=== PATIENT | female | born 1980 | race Caucasian/White ===

== ENCOUNTER → 2024-09-11 | Outpatient (CLI) | payer MEDICAID, SELFPAY ==
[2024-09-11 11:24] LABS: HCG Qualitative,Urine Negative
== END | disposition home or self-care (01) ==
LOC: SLAB 09-14 07:29
PROVIDERS: PCP Family Medicine; Referring Provider Internal Medicine; Visit Provider Internal Medicine
DX: Z32.00 Encounter for pregnancy test, result unknown (principal)
CPT/HCPCS: 81025

== ENCOUNTER 2024-10-29 07:33 | Emergency (ER) | payer MEDICAID, SELFPAY ==
[2024-10-29 07:34] VITALS: BMI 49.1
[2024-10-29 07:44] VITALS: BP 109/69; PULSE 101; RESP 20; TEMP 37; O2SAT 95
--- NOTE | 2024-10-29 07:59 | PC.NURSE ---
Patient declined Covid and Influenza swab test, declined X-ray, medication and breathing treatment. Patient only wants Inhaler for at home use.MD Villeda notified.
--- NOTE | 2024-10-29 08:05 | PC.NURSE ---
PT REFUSED TO HAVE XRAY DONE, JAN/FLU SWAB DONE, AND REFUSED SOLUMEDROL SHOT. DR. CENTENO AWARE
--- NOTE | 2024-10-29 09:09 | EDNOTE_ITS ---
Upper Respiratory Inf. RME/HPI General Chief Complaint: Flu Like Symptoms Stated Complaint: COUGH FOR 5 DAYS Time Seen by Provider: 10/29/24 07:36 Source: patient Arrival date/time: 10/29/24 07:33 Mode of arrival: ambulatory Limitations: no limitations RME / HPI RME / HPI Narrative: Patient is a 43-year-old female with medical history notable for smoking that emerged primary concerns for difficulty catching her breath after smoking out as well as a cough. Patient states that he has had a cough the last couple days yesterday after she smoked she had a hard time catching her breath and so she came to the emergency department for evaluation. Denies fevers chills nausea vomiting chest pain abdominal pain dysuria hematuria melena bloody stools. No drugs or alcohol. No recent travel no sick contacts Related Data Previous Rx's ?Medication ?Instructions ?Recorded albuterol sulfate 90 mcg/actuation 2 puff inhalation Q ID PRN 10/29/24 aerosol inhaler shortness of breath or wheez ing #8.5 grams Allergies Allergy/AdvReac Type Severity Reaction Status Date / Time No Known Allergies Allergy Verified 10/29/24 07:36 ED Exam General Limitations: Present no limitations General appearance: Present alert and in no apparent distress Head Head exam: Present atraumatic Eye Eye exam: Present normal appearance ENT ENT exam: Present normal exam Neck Neck exam: Present normal inspection, full ROM and trachea midline; Absent tenderness or lymphadenopathy Chest Chest inspection: Present symmetric chest wall rise Respiratory Respiratory exam: Present wheezes (Diffuse fine wheezes) Cardiovascular Cardiovascular exam: Present normal rhythm Abdominal Exam Abdominal exam: Present soft; Absent distention or tenderness Neurological Exam Neurological exam: Present alert, oriented X3 and normal gait Skin Skin exam: Present warm and dry Course Quality Measures none Orders Category Date Time Status Bedside COVID-19 Antigen Test NOW Care 10/29/24 07:54 Completed Bedside Influenza A&B Antigen Test NOW Care 10/29/24 07:56 Completed MethylPREDNISolone.* [SoluMEDROL Inj] Med 10/29/24 07:54 Discontinued 125 mg IM X1 ONE Vital Signs Vital signs: Vital Signs Temperature 98.6 F 10/29/24 07:44 Pulse Rate 101 H 10/29/24 07:44 Respiratory Rate 20 10/29/24 07:44 Blood Pressure 109/69 10/29/24 07:44 Pulse Oximetry (%) 95 10/29/24 07:44 Oxygen Delivery Method Room Air 10/29/24 07:44 Upper Respiratory Infection MDM Narrative MDM Narrative:: Patient is a 43-year-old female seen emerged from concerns for shortness of br eath. Vital signs and exam as listed. Concern for pneumonia, viral syndrome, COPD exacerbation, reactive airway exacerbation among others. Offered DuoNeb breathing treatment, steroids, chest x-ray swabs. Patient declined everything. Patient understands and concerned about life-threatening pathology, and that given her wheezes is important that we do a workup and provide medications for symptom relief. However despite this patient declined. Patient is requesting an inhaler for home. Patient is GCS 15 no focal neurodeficits, not in respiratory distress, no accessory muscles use for breathing. Patient speaking in complete sentences. Patient is capacity make own decisions. Explained risk benefits of continue workup and treatment. Patient continue to decline. Will discharge to home with close return precautions follow-up with primary care doctor and recommendation for her to return for further treatment or evaluation. Patient data External records reviewed:: None Clinical information provided by:: patient Social determinants that could affect healthcare access:: none Patient has the following chronic illnesses:: Smoking How is presenting disease/condition affected by chronic disease/condition?: exacerbated by Evaluation data The following diagnostics were reviewed and interpreted by me:: other (specify) Lab and/or radiology exams considered but not ordered:: Plan for patient breathing treatment, steroids, swabs, chest x-ray however she declined all assessment, and treatment in the emergency department Interpretation Summary: None Medications / Prescriptions Medications or Prescriptions considered but not ordered:: None Medication administrations:: Medication Administration History Discontinued Medications Methylprednisolone Sodium Succinate (Methylprednisolone Sod Succ 62.5 Mg/Ml 2ml Vial) 125 mg IM X1 ONE Stop: 10/29/24 07:55 Last Admin: 10/29/24 08:06 Dose: Not Given Documented By: [facility] Non-Admin Reason: Patient Refused See above Consultations Consultation(s) initiated? (list below): No Diagnosis Upper Respiratory Differential Diagnosis: upper respiratory infection Most likely diagnosis given after review of the tests above:: Cough, shortness of breath, wheezing Admission Indicated Admission indicated?: not indicated Admission Request Was there a request for admission?: No Disposition Plan Disposition Plan: Discharge Discharge Attestation Discharge Attestation: The patient and all family members were given an opportunity to ask questions and understood the discharge instructions. Discharge instructions specifically effects, indications for sooner follow up or return to the emergency department, and the expected course of current diagnosis. Patient condition: Stable Discharge Plan Plan Patient Disposition: HOME (Self Care) Prescriptions/Referrals Prescriptions/Med Rec: New albuterol sulfate 90 mcg/actuation HFA aerosol inhaler 2 puff inhalation QID PRN (Reason: shortness of breath or wheezing) Qty: 8.5 0RF Problem List Clinical Impression: Cough, Diffuse wheezing Patient/Caregiver Discharge Instructions Additional Instructions: Today we recommended steroids , a breathing treatment in the emergency department, chest x-ray and swabs to further assess your cough and shortness of breath. Even though you declined these interventions and studies we have sent a breathing treatment prescription to your pharmacy. You can always return to the emergency department anytime to continue workup and management. Print Language: [place]an Stand Alone Forms: Ashley Award Info., Patient Portal Info Letter
== END 2024-10-29 08:14 | disposition home or self-care (01) ==
LOC: SERX 07:59
PROVIDERS: Emergency Provider Emergency Medicine
DX: R05.9 Cough, unspecified (principal); R06.2 Wheezing
CPT/HCPCS: 99282

== ENCOUNTER 2024-10-29 17:03 | Emergency (ER) | payer MEDICAID, SELFPAY ==
[2024-10-29 17:03] VITALS: BMI 48.6
[2024-10-29 17:30] VITALS: BP 134/76; PULSE 110; RESP 19; TEMP 37.3; O2SAT 98; BMI 49.4
--- NOTE | 2024-10-29 17:53 | XR_ITS ---
Examination: PA lateral chest 2 views TECHNIQUE: Upright PA and lateral chest 2 views Date and time: October 29, 2024 1757 hours INDICATIONS: Cough and shortness of breath beginning 5 days ago. FINDINGS: Early bilateral perihilar bibasilar pneumonia. Normal heart size. The osseous structures are intact. IMPRESSION: Early bilateral perihilar bibasilar pneumonia
[2024-10-29 18:13] VITALS: PULSE 106
[2024-10-29] MEDS: IPRATROPIUM RT 0.5 MG/ 2.5 ML NEBU 1 MG INH (18:13)
[2024-10-29] MEDS: ALBUTEROL RT 2.5 MG/0.5 ML NEBU 10 MG INH (18:13)
[2024-10-29 18:14] VITALS: PULSE 107; RESP 20; O2SAT 98
[2024-10-29 18:35] LABS: Basophils # (Auto) 0.0 Thou/mm3 (0.0-0.2); Basophils % (Auto) 0 % (0-2.5); Eosinophils # (Auto) 0.0 Thou/mm3 (0.0-0.5); Eosinophils % (Auto) 0 % (0-10); Hematocrit 45.3 % (36.0-46.0); Hemoglobin 14.6 g/dL (12.0-16.0); Immature Granulocytes Auto 0.08 Thou/mm3 (0.00-0.00); Lymphocytes # (Auto) 1.5 Thou/mm3 (1.0-4.8); Lymphocytes % (Auto) 12 % (10-50); Mean Corpuscular HGB Conc 32.2 g/dl (31.0-37.0); Mean Corpuscular Hemoglobin 28.8 pg (25.0-35.0); Mean Corpuscular Volume 89 fL (80-100); Monocytes # (Auto) 1.0 Thou/mm3 (0.0-0.8); Monocytes % (Auto) 8 % (0-12); Neutrophils # (Auto) 9.5 Thou/mm3 (1.8-7.7); Neutrophils % (Auto) 79 % (37-80); Nucleated Red Blood Cell # 0.00 Thou/mm3 (0.00-0.00); Nucleated Red Blood Cell % 0 /100 WBC (0); Platelet Count 338 Thou/mm3 (140-440); RDW Standard Deviation 47.1 fL (36.4-46.3); Red Blood Count 5.07 Miln/mm3 (4.00-5.20); White Blood Count 12.0 Thou/mm3 (3.6-11.0)
[2024-10-29 18:52] LABS: Alanine Aminotransferase 15 U/L (10-49); Albumin, Serum 4.5 gm/dL (3.5-5.0); Albumin/Globulin Ratio 1.3 (1.2-2.2); Alkaline Phosphatase 77 U/L (46-116); Anion Gap 9 (7-16); Aspartate Amino Transferase 14 U/L (0-34); BUN/Creatinine Ratio 8 Ratio (12-20); Bilirubin,Total 0.9 mg/dL (0.3-1.2); Blood Urea Nitrogen 9 mg/dL (9-23); Calcium 9.9 mg/dL (8.3-10.6); Calcium (Corrected) 9.9 mg/dL (8.5-10.1); Carbon Dioxide 25.5 mMol/L (20.0-31.0); Chloride 108 mMol/L (98-107); Creatinine (Component) 1.2 mg/dL (0.6-1.3); Estimated Creatinine Clearance 82.0 mL/min (>60); Globulin 3.5 gm/dL (2.3-3.5); Glucose 109 mg/dL (74-106); Osmolality,Calculated 282 (275-295); Potassium 4.6 mMol/L (3.4-5.1); Sodium 142 mMol/L (136-145); Total Protein 8.0 gm/dL (5.7-8.2); eGFR 58 See Note
[2024-10-29] MEDS: MethylPREDNISolone SOD SUCC 62.5 MG/ML 2ML VIAL 125 MG IM (18:54)
--- NOTE | 2024-10-29 19:01 | PD.EDRME ---
Rapid Medical Screening Exam RME Arrival date/time: 10/29/24 17:03 Chief Complaint: Flu Like Symptoms Time Seen by Provider: 10/29/24 17:24 Vital signs: Vital Signs Temperature 99.2 F 10/29/24 17:30 Pulse Rate 110 H 10/29/24 17:30 Respiratory Rate 19 10/29/24 17:30 Blood Pressure 134/76 H 10/29/24 17:30 Pulse Oximetry (%) 98 10/29/24 17:30 Oxygen Delivery Method Room Air 10/29/24 17:30 Vital signs reviewed by provider: Yes RME Narrative: Patient is a 43-year-old female with medical history notable for smoking lives in Emergency Department concerns for shortness of breath. Patient was in the emergency department earlier, declined any testing and medications after they were offered to her. Patient requested an inhaler be prescribed. Patient returns today because of worsening shortness of breath difficulty breathing and worsening cough.
== END 2024-10-29 19:38 | disposition left against medical advice (07) ==
PROVIDERS: Emergency Provider Emergency Medicine; PCP Family Medicine
DX: R06.02 Shortness of breath (principal); Z53.29 Procedure and treatment not carried out because of patient's decision for other reasons; R05.9 Cough, unspecified
CPT/HCPCS: 36415; 71046; 80053; 85025; 87400; 87811; 94644; 96372; 99283; J2919